=== PATIENT | female | born 1940 ===

== ENCOUNTER 2019-09-25 10:21 | Outpatient (CLI) | payer OTHER | END 2019-09-25 10:23 | disposition home or self-care (01) | LOC: MRI 10:21 | DX: M25.561 Pain in right knee (principal) | CPT/HCPCS: 73718 ==

== ENCOUNTER 2024-12-11 12:55 | Outpatient (CLI) | payer OTHER | END 2024-12-11 13:04 | disposition home or self-care (01) | LOC: TOM 12:55 | DX: E21.3 Hyperparathyroidism, unspecified (principal) | CPT/HCPCS: 70492; Q9965 ==